=== PATIENT | female | born 1960 | race Caucasian/White ===

== ENCOUNTER → 2017-09-13 | Outpatient (CLI) | payer OTHER ==
[~2017-09-13] MED LIST: AMIT10 PO; AMOCLA875 PO; DIAZ5 PO; DOCU100 PO; ENABLEX PO; ESCI20 PO; HYDACE5 PO; IBUP800 PO; IBUPROFEN; META800 PO; MINO100; Naprosyn500 MG PO; Norco 5-325 Ta1 EACH PO; OXYACE5T PO; PROG100; PROM25 PO; RXOXYACE PO; RXPROM25 PO; SULF10OPSA OD; TRAM50 PO; VENL75ER PO; [UNRECOGNIZED DRUG - OTHER]
[2017-09-13 14:02] LABS: Adenovirus F 40/41 Not Detected (NOT DETECT); Astrovirus Not Detected (NOT DETECT); Campylobacter Sp Not Detected (NOT DETECT); Cryptosporidium Not Detected (NOT DETECT); Cyclospora Cayetanensis Not Detected (NOT DETECT); E. Coli O157 Not Detected (NOT DETECT); Entamoeba Histolytica Not Detected (NOT DETECT); Enteroaggregative E. coli-EAEC Not Detected (NOT DETECT); Enterotoxigenic E. coli-ETEC Not Detected (NOT DETECT); Giardia Lamblia Not Detected (NOT DETECT); Norovirus GI/GII Not Detected (NOT DETECT); Plesiomonas Shigelloides Not Detected (NOT DETECT); Rotavirus A Not Detected (NOT DETECT); Salmonella Sp Not Detected (NOT DETECT); Sapovirus Not Detected (NOT DETECT); Shiga Toxin-prod E. coli-STEC Not Detected (NOT DETECT); Shigella/Enteroin E. coli-EIEC Not Detected (NOT DETECT); Vibrio Cholerae Not Detected (NOT DETECT); Vibrio Sp Not Detected (NOT DETECT); Yersinia Enterocolitica Not Detected (NOT DETECT)
[2017-09-13 18:54] LABS: Enteropathogenic E. coli-EPEC Detected (NOT DETECT)
== END ==
LOC: LAB EV 08:15
PROVIDERS: Physician Assistant Surgical
DX: A08.4 Viral intestinal infection, unspecified (principal)
CPT/HCPCS: 87507

== ENCOUNTER → 2018-06-16 | Outpatient (CLI) | payer OTHER ==
[2018-06-18 16:07] LABS: HPV 16 Negative (Negative); HPV 18 Negative (Negative); HPV OTHER HR TYPES Negative (Negative)
== END | disposition home or self-care (01) ==
LOC: LAB SHORT 17:16 → LAB 17:16
PROVIDERS: Nurse Practitioner Women's Health
DX: Z12.4 Encounter for screening for malignant neoplasm of cervix (principal); Z91.89 Other specified personal risk factors, not elsewhere classified
CPT/HCPCS: 87624; G0123

== ENCOUNTER → 2019-09-02 | Outpatient (CLI) | payer OTHER | END | disposition home or self-care (01) | LOC: LAB SHORT 14:18 → LAB 14:18 | DX: N10 Acute pyelonephritis (principal) | CPT/HCPCS: 87077; 87086; 87186 ==

== ENCOUNTER → 2019-09-06 | Outpatient (CLI) | payer OTHER ==
[2019-09-06 16:13] LABS: Hematocrit 38.8 % (33.0-51.0); Hemoglobin 12.2 g/dL (11.5-16.0); Mean Corpuscular HGB 27.7 pg (26.0-34.0); Mean Corpuscular HGB Conc 31.4 g/dL (31.5-36.5); Mean Corpuscular Volume 88 fL (80-100); Mean Platelet Volume 10.9 fL (9.1-12.4); Platelet Count 407 K/mm3 (150-400); RDW Coefficient Variation 14.9 % (11.7-14.2); RDW Standard Deviation 48.4 fL (35.1-46.3); Red Blood Cell Count 4.41 M/mm3 (3.80-5.20)
[2019-09-06 16:31] LABS: BAND PERCENT MAN 4 % (0-8); BASOPHILS ABSOLUTE MAN 0.27 K/mm3 (0.00-0.23); BASOPHILS PERCENT MAN 3 % (0-2); EOSINOPHILS PERCENT MAN 0 % (0-6); LYMPHOCYTES ABSOLUTE MAN 2.18 K/mm3 (0.84-5.20); LYMPHOCYTES PERCENT MAN 24 % (21-46); METAMYELOCYTE ABSOLUTE MAN 0.27 K/mm3 (0.00-0.00); METAMYELOCYTE PERCENT MAN 3 % (0-0); MONOCYTES ABSOLUTE MAN 0.36 K/mm3 (0.16-1.47); MONOCYTES PERCENT MAN 4 % (4-13); MYELOCYTE ABSOLUTE MAN 0.09 K/mm3 (0.00-0.00); MYELOCYTE PERCENT MAN 1 % (0-0); NEUTROPHILS ABSOLUTE MAN 5.91 K/mm3 (1.96-9.15); SEG NEUTROPHILS PERCENT MAN 61 % (41-73); TOTAL CELLS COUNTED 100
[2019-09-06 16:34] LABS: Alanine Aminotransfer (ALT/SGP 144 U/L (12-78); Albumin, Blood 2.5 g/dL (3.4-5.0); Albumin/Globulin Ratio 0.5 (0.8-1.8); Alk Phos 192 U/L (50-136); Anion Gap 6 mmol/L (6-16); Aspartate Aminotrans (AST/SGOT 31 U/L (12-37); Bilirubin, Total 0.5 mg/dL (0.1-1.0); Blood Urea Nitrogen 19 mg/dL (8-24); Bun/Creatinine Ratio 20.7 (12.0-20.0); CO2, Blood 29 mmol/L (21-32); Calcium, Blood 8.7 mg/dL (8.5-10.1); Chloride, Blood 106 mmol/L (98-108); Creatinine, Blood 0.92 mg/dL (0.40-1.00); Glomerular Filtration Rate >60 (60-); Glucose, Blood 97 mg/dL (70-99); Potassium, Blood 3.8 mmol/L (3.5-5.5); Sodium, Blood 141 mmol/L (136-145); Total Protein, Blood 7.5 g/dL (6.4-8.2)
[2019-09-06 17:31] LABS: Adenovirus F 40/41 Not Detected (NOT DETECT); Astrovirus Not Detected (NOT DETECT); Campylobacter Sp Not Detected (NOT DETECT); Cryptosporidium Not Detected (NOT DETECT); Cyclospora Cayetanensis Not Detected (NOT DETECT); E. Coli O157 Not Detected (NOT DETECT); Entamoeba Histolytica Not Detected (NOT DETECT); Enteroaggregative E. coli-EAEC Not Detected (NOT DETECT); Enteropathogenic E. coli-EPEC Not Detected (NOT DETECT); Enterotoxigenic E. coli-ETEC Not Detected (NOT DETECT); Giardia Lamblia Not Detected (NOT DETECT); Norovirus GI/GII Not Detected (NOT DETECT); Plesiomonas Shigelloides Not Detected (NOT DETECT); Rotavirus A Not Detected (NOT DETECT); Salmonella Sp Not Detected (NOT DETECT); Sapovirus Not Detected (NOT DETECT); Shiga Toxin-prod E. coli-STEC Not Detected (NOT DETECT); Shigella/Enteroin E. coli-EIEC Not Detected (NOT DETECT); Vibrio Cholerae Not Detected (NOT DETECT); Vibrio Sp Not Detected (NOT DETECT); Yersinia Enterocolitica Not Detected (NOT DETECT)
== END | disposition home or self-care (01) ==
LOC: LAB SHORT 15:00 → LAB 15:00
PROVIDERS: Physician Assistant
DX: N12 Tubulo-interstitial nephritis, not specified as acute or chronic (principal); R19.7 Diarrhea, unspecified; N39.0 Urinary tract infection, site not specified; R53.83 Other fatigue
CPT/HCPCS: 0097U; 80053; 84443; 85025; 87086

== ENCOUNTER → 2020-01-13 | Outpatient (CLI) | payer OTHER ==
[~2020-01-13] MED LIST changes: +MELO7.5 PO
== END ==
LOC: LAB 14:28 → LAB SHORT 14:28
DX: R30.0 Dysuria (principal)
CPT/HCPCS: 87077; 87086; 87186

== ENCOUNTER 2020-02-02 09:37 | Day surgery (SDC) | payer OTHER ==
[~2020-02-02] VITALS: Ht 160 cm; Wt 83.8 kg
[~2020-02-02 09:37] MED LIST changes: -MELO7.5 PO
[2020-02-02] MEDS ORDERED: MELO7.5 PO (10:06)
--- NOTE | 2020-02-02 11:27 | NUR ---
02/02/20 1127 Anamaria Vaz History, Chart, Medications and Allergies reviewed before start of procedure. Patient confirms NPO status and agrees with scheduled surgery.PATIENT DETERMINED TO BE ASA APPROPRIATE FOR MODERATE SEDATION PRIOR TO START OF PROCEDURE BY DR. WEBER. 3-LEAD EKG REVIEWED WITH PHYSICIAN PRIOR TO START OF PROCEDURE. MONITOR INTACT WITH CONTINUOUS PULSE OXIMETRY AND INTERMITTENT BP.
--- NOTE | 2020-02-02 12:05 | NUR ---
Patient up to Ambulate independently. Gait steady. Discharge instructions reviewed with patient. Patient verbalizes understanding. Copy given to patient to take home. Patient States Post-Procedure ride home has been arranged. Discharged via wheelchair to private car for ride home. ALL BELONINGS RETURNED TO PATIENT.
== END 2020-02-02 23:00 | disposition home or self-care (01) ==
LOC: ORSCMMR 09:37 → ORD 10:15 → ORSCMMR 10:15
PROVIDERS: Internal Medicine Gastroenterology
PROC: 0DJD8ZZ Inspection of Lower Intestinal Tract, Via Natural or Artificial Opening Endoscopic (ICD-10-PCS; principal; 2020-02-02 10:15)
DX: Z12.11 Encounter for screening for malignant neoplasm of colon (principal); Z80.0 Family history of malignant neoplasm of digestive organs; K64.8 Other hemorrhoids; F32.9 Major depressive disorder, single episode, unspecified; G47.30 Sleep apnea, unspecified; Z86.010 Personal history of colon polyps; Z79.899 Other long term (current) drug therapy
CPT/HCPCS: J2250; J3010; J7120

== ENCOUNTER → 2020-12-20 | Outpatient (CLI) | payer OTHER ==
[~2020-12-20] MED LIST changes: +MELO7.5 PO
[2020-12-20 17:23] LABS: Source, Urine Voided
[2020-12-20 19:35] LABS: Appearance, Urine Hazy (Clear); Bilirubin, Urine Neg (Neg); Blood, Urine Neg (Neg); Color, Urine Yellow (P-Yellow); Glucose Qualitative, Urine Neg (Neg); Ketones, Urine Neg (Neg); Leukocyte Esterase, Urine Neg (Neg); Nitrite, Urine Neg (Neg); Protein, Urine Neg (Neg); Urobilinogen, Urine NORM (Normal)
[2020-12-20 20:08] LABS: Amorphous Heavy (0-Heavy); Bacteria Mod /hpf; Red Blood Cells, Urine Not Seen /hpf (0-2); Squamous Epithelial Cells Many /hpf (Few); White Blood Cells, Urine Not Seen /hpf (0-5)
== END | disposition home or self-care (01) ==
LOC: LAB SHORT 17:20 → LAB 17:20
PROVIDERS: Urology
DX: N20.0 Calculus of kidney (principal)
CPT/HCPCS: 81001; 87077; 87086; 87186

== ENCOUNTER → 2021-04-25 | Outpatient (CLI) | payer OTHER ==
[2021-04-25 23:50] LABS: Anion Gap 4 mmol/L (6-16); Blood Urea Nitrogen 18 mg/dL (8-24); Bun/Creatinine Ratio 18.1 (12.0-20.0); CHOL/HDL RATIO 2.6; CO2, Blood 32 mmol/L (21-32); Calcium, Blood 9.5 mg/dL (8.5-10.1); Chloride, Blood 107 mmol/L (98-108); Cholesterol 184 mg/dL (50-200); Glomerular Filtration Rate 57 (60-); Glucose, Blood 94 mg/dL (70-99); HDL Cholesterol 70 mg/dL (>39); LDL/HDL RATIO 1.4; Low Density Lipoprotein Chol 95 mg/dL (0-110); Potassium, Blood 4.9 mmol/L (3.5-5.5); Sodium, Blood 143 mmol/L (136-145); Triglycerides 94 mg/dL (30-160); Very Low Density Lipoprot Chol 18 mg/dL (6-32)
== END ==
LOC: LAB SHORT 10:21 → LAB FUT 04-10 12:50
PROVIDERS: Physician Assistant
DX: N39.0 Urinary tract infection, site not specified (principal); E78.5 Hyperlipidemia, unspecified
CPT/HCPCS: 36415; 80048; 80061

== ENCOUNTER → 2021-11-16 | Outpatient (CLI) | payer OTHER | END | disposition home or self-care (01) | LOC: LAB SHORT 16:42 → LAB 16:42 | DX: J02.9 Acute pharyngitis, unspecified (principal) | CPT/HCPCS: 87077; 87081; 87185 ==

== ENCOUNTER 2022-11-07 22:13 | Emergency (ER) | payer OTHER ==
[~2022-11-07] VITALS: Ht 157.5 cm; Wt 83.0 kg
[2022-11-07 22:20] VITALS: BP 144/87
== END 2022-11-08 01:01 | disposition home or self-care (01) ==
LOC: ER 22:13
DX: M65.4 Radial styloid tenosynovitis [de Quervain] (principal); Z88.2 Allergy status to sulfonamides; Z88.1 Allergy status to other antibiotic agents; Z88.8 Allergy status to other drugs, medicaments and biological substances; Z79.899 Other long term (current) drug therapy
CPT/HCPCS: 73110; 96372; 99283-25; A9270; J1885

== ENCOUNTER 2023-01-02 06:09 | Day surgery (SDC) | payer OTHER ==
[~2023-01-02] VITALS: Ht 154.9 cm; Wt 82.4 kg
[2023-01-02] VITALS (14 sets, daily range): BP systolic 97–145; BP diastolic 60–97
[~2023-01-02 06:09] MED LIST changes: +CALTRATE 600 P1 EACH PO; +MULVITA PO; +POTASSIUM CITR10 MEQ PO
--- NOTE | 2023-01-02 07:00 | NUR ---
History, Chart, Medications and Allergies reviewed before start of procedure. Lungs clear T/O to Auscultation. Patient confirms NPO status and agrees with scheduled surgery. Pre-Op teaching done. Pt verbalizes understanding. Patient reports completing Chlorhexadine shower X2 prior to admission to hospital.
--- NOTE | 2023-01-02 07:25 | NUR ---
PT NOTED TO HAVE TWO SMALL SCRATCH ON LATERAL LEFT HANSEN WHICH SHE REPORTS WAS FROM HER CAT A FEW DAYS AGO. DOESN'T NOT APPEAR TO BE INFECTED AT THIS TIME. DR. POTTER NOTIFED AND ASSESSED. PTS DAUGHTER GIVEN RX FOR ANTIBIOTICS FOR AFTER SURGERY. PLAN TO PROCED WITH SURGERY
--- NOTE | 2023-01-02 11:01 | NUR ---
ARRIVAL TO SURGICAL UNIT PLEASANT & COOPERATIVE. ASSESSMENT CHARTED. IVF INFUSING. DENIES N/V. SNACKS & WATER GIVEN. WILL ORDER LUNCH TRAY. PAIN 05/25; WILL MEDICATE w/ PO MEDS IF TOLERATES SNACKS. DAUGHTER AT BEDSIDE; ATTENTIVE & LOVING.
--- NOTE | 2023-01-02 18:01 | NUR ---
SHIFT SUMMARY PAIN WELL CONTROLLED. WORKED w/ THERAPY. EATING, DRINKING, & VOIDING; (WEARING PULLS UPS SHE DOES HAVE STRESS INCONTINENCE). BULKY KRISTY WRAP w/ NO DRNG OR SHADOWING.
[2023-01-03 00:01] VITALS: BP 102/60
--- NOTE | 2023-01-03 03:48 | NUR ---
SHIFT SUMMARY POD 1 L TKA. NO ACUTE CHANGES OVERNIGHT. VSS, O2 SAT >92% ON 2L NC. KRISTY WRAP/GAUZE C/D/I, POLAR PACK IN PLACE. PT TOLERATING ORALS. AMBULATE TO RESTROOM c FWW & SBA FOR LINES/CORDS. ANTICIPATED DISCHARGE LATER TODAY. CALL LIGHT WITHIN REACH, BED IN LOWEST POSITION, WILL REPORT TO DAY RN.
[2023-01-03 05:16] VITALS: BP 97/58
[2023-01-03 05:18] LABS: BASOPHILS ABSOLUTE AUTO 0.03 K/mm3 (0.00-0.23); BASOPHILS PERCENT AUTO 0 % (0-2); EOSINOPHILS ABSOLUTE AUTO 0.02 K/mm3 (0.00-0.68); EOSINOPHILS PERCENT AUTO 0 % (0-6); Hematocrit 33.7 % (33.0-51.0); Hemoglobin 10.8 g/dL (11.5-16.0); IMMATURE GRAN ABSOLUTE AUTO 0.05 K/mm3 (0.00-0.10); IMMATURE GRAN PERCENT AUTO 0 % (0-1); LYMPHOCYTES ABSOLUTE AUTO 1.84 K/mm3 (0.84-5.20); LYMPHOCYTES PERCENT AUTO 16 % (21-46); MONOCYTES ABSOLUTE AUTO 0.81 K/mm3 (0.16-1.47); MONOCYTES PERCENT AUTO 7 % (4-13); Mean Corpuscular HGB 28.5 pg (26.0-34.0); Mean Corpuscular Volume 89 fL (80-100); Mean Platelet Volume 11.6 fL (9.1-12.4); NEUTROPHILS ABSOLUTE AUTO 9.11 K/mm3 (1.96-9.15); NEUTROPHILS PERCENT AUTO 77 % (41-73); Platelet Count 236 K/mm3 (150-400); RDW Coefficient Variation 13.7 % (11.7-14.2); RDW Standard Deviation 44.9 fL (35.1-46.3); Red Blood Cell Count 3.79 M/mm3 (3.80-5.20); White Blood Cell Count 11.86 K/mm3 (4.00-11.30)
[2023-01-03 05:43] LABS: Bun/Creatinine Ratio 22.2 (12.0-20.0); Calcium, Blood 7.9 mg/dL (8.5-10.1); Creatinine, Blood 0.77 mg/dL (0.40-1.00); Potassium, Blood 3.9 mmol/L (3.5-5.5)
[2023-01-03 07:18] VITALS: BP 111/66
--- NOTE | 2023-01-03 10:40 | NUR ---
DISCHARGE SUMMARY PT A&OX4, VSS/RA, DESIREE PO, VOIDING, AMB SBA FWW, PAIN MANAGED, IV DC'D. DC INS PROVIDED. PT REP UNDERSTANDING THOSE INSTRUCTIONS. LEFT FLOOR VIA WC WITH SMELTER LINER TO GO HOME WITH DAUGHTER, WITH ALL PERSONAL POSSESSIONS INCLUDING DC PACKET AND AQUACEL DRESSINGS.
== END 2023-01-03 11:07 | disposition home or self-care (01) ==
LOC: ORSCMMR 06:09 → ORD 07:30 → ORSCMMR 07:30 → ORD 10:45 → SURS 11:11 → ORSCMMR 01-03 11:07
PROVIDERS: Orthopaedic Surgery
PROC: 0SRD0J9 Replacement of Left Knee Joint with Synthetic Substitute, Cemented, Open Approach (ICD-10-PCS; principal; 2023-01-02 07:30)
DX: M17.0 Bilateral primary osteoarthritis of knee (principal); Z79.899 Other long term (current) drug therapy; Z68.34 Body mass index [BMI] 34.0-34.9, adult
CPT/HCPCS: 36415; 73560-LT; 80048; 83735; 85025; 97110; 97110-CQ; 97116; 97116-CQ; 97161; 97530-CQ; A9270; C1713; C1776; J0171; J0690; J0735; J1100; J1885; J2250; J2405; J2704; J2795; J3010; J7120

== ENCOUNTER 2023-11-06 10:25 | Day surgery (SDC) | payer OTHER ==
[~2023-11-06] VITALS: Ht 156 cm; Wt 83.0 kg
[2023-11-06] VITALS (11 sets, daily range): BP systolic 112–149; BP diastolic 67–89
[2023-11-06] MEDS ORDERED: Acetaminophen 500 MG Tab PO SCH ×2 (11:00→16:00)
[2023-11-06] MEDS ORDERED: CeFAZolin Sodium 2,000 MG in NS 100 ML IV SCH ×2 (11:00→22:00)
[2023-11-06] MEDS ORDERED: Chlorhexidine Mouth Care 15 ML UDC MT SCH (11:00)
[2023-11-06] MEDS ORDERED: Ropivacaine 0.5% HCl/Pf 123.125 MG,EPINEPHrine HCL 0.25 MG,Ketorolac Tromethamine 15 MG... INFIL SCH (11:00)
[2023-11-06] MEDS ORDERED: Vancomycin HCL 1,000 MG in NS 250 ML IV SCH (11:00)
[2023-11-06] MEDS ORDERED: OxyCODONE HCL 10 MG TABCR PO SCH (11:00)
[2023-11-06] MEDS ORDERED: Lactated Ringer's 1,000 ML IV SCH ×2 (11:00→14:10)
[2023-11-06] MEDS ORDERED: Tranexamic Acid 100 ML IV SCH (11:04)
[2023-11-06] MEDS ORDERED: NS 100 ML IV ONE ×2 (11:15→20:12)
[2023-11-06] MEDS ORDERED: CeFAZolin Sodium 2,000 MG VIAL ONE ×2 (11:15→20:12)
--- NOTE | 2023-11-06 13:52 | NUR ---
History, Chart, Medications and Allergies reviewed before start of procedure. Patient up to Ambulate independently. Gait steady. Pre-Op teaching done. Pt verbalizes understanding. Patient confirms NPO status and agrees with scheduled surgery. Patient reports completing Chlorhexadine shower X2 prior to admission to hospital. Surgical site prepped with 2% Chlorhexidine cloth wipe. Lungs clear T/O to Auscultation.
[2023-11-06] MEDS ORDERED: propofoL 20 ML IV ONE ×4 (13:53→15:36)
[2023-11-06] MEDS ORDERED: FentaNYL Citrate 50 MCG/ML 2 ML Injection ONE (13:53)
[2023-11-06] MEDS ORDERED: Midazolam HCl 1MG / ML 2ML Vial ONE (13:54)
[2023-11-06] MEDS ORDERED: Magnesium Hydroxide Conc 10 ML UDC PO PRN (14:05)
[2023-11-06] MEDS ORDERED: Bisacodyl 10 MG Supp PR PRN (14:10)
[2023-11-06] MEDS ORDERED: Ondansetron HCl 2 MG / ML 2ML Vial IV PRN (14:10)
[2023-11-06] MEDS ORDERED: OxyCODONE HCL 5 MG TAB PO PRN ×2 (14:10)
[2023-11-06] MEDS ORDERED: DiphenhydrAMINE HCL 25 MG Cap PO PRN (14:15)
[2023-11-06] MEDS ORDERED: Promethazine HCl 25 MG Tab PO PRN (14:15)
[2023-11-06] MEDS ORDERED: HYDROmorphone HCl/Pf 1MG SYR IV PRN (14:15)
[2023-11-06] MEDS ORDERED: Metoclopramide HCl 5MG / ML 2ML Vial IV PRN (14:20)
[2023-11-06] MEDS ORDERED: ePHEDrine Sulfate 50 MG/ML 1ML Injection ONE (14:25)
--- NOTE | 2023-11-06 14:53 | NUR ---
11/06/23 1453 Marianna Elizondo SPINAL BLOCK COMPLETED BY UPON ENTRY TO OR. PATIENT TOLERATED WELL. VANCOMYCIN POWDER 1GM POURED ONTO STERILE FIELD. POWDER INSTILLED INTO JOINT CAPSULE.
[2023-11-06] MEDS ORDERED: Glycopyrrolate 0.2 MG/ML 5ML VIAL ONE (15:59)
[2023-11-06] MEDS ORDERED: Ketorolac Tromethamine 15mg Vial IV SCH (18:00)
[2023-11-06] MEDS ORDERED: Potassium Citrate 5 MEQ TABCR PO SCH (21:00)
[2023-11-06] MEDS ORDERED: Docusate Sodium 100 MG Cap PO SCH (21:00)
[2023-11-07] MEDS ORDERED: Vancomycin HCL 1,000 MG in NS 250 ML IV ONE (01:30)
[2023-11-07 02:40] VITALS: BP 115/70
[2023-11-07 04:36] LABS: BASOPHILS ABSOLUTE AUTO 0.04 K/mm3 (0.00-0.23); BASOPHILS PERCENT AUTO 0 % (0-2); EOSINOPHILS ABSOLUTE AUTO 0.07 K/mm3 (0.00-0.68); EOSINOPHILS PERCENT AUTO 1 % (0-6); Hematocrit 33.7 % (33.0-51.0); Hemoglobin 10.9 g/dL (11.5-16.0); IMMATURE GRAN ABSOLUTE AUTO 0.04 K/mm3 (0.00-0.10); IMMATURE GRAN PERCENT AUTO 0 % (0-1); LYMPHOCYTES ABSOLUTE AUTO 1.67 K/mm3 (0.84-5.20); LYMPHOCYTES PERCENT AUTO 17 % (21-46); MONOCYTES ABSOLUTE AUTO 0.69 K/mm3 (0.16-1.47); MONOCYTES PERCENT AUTO 7 % (4-13); Mean Corpuscular HGB 28.8 pg (26.0-34.0); Mean Corpuscular HGB Conc 32.3 g/dL (31.5-36.5); Mean Corpuscular Volume 89 fL (80-100); Mean Platelet Volume 11.1 fL (9.1-12.4); NEUTROPHILS PERCENT AUTO 74 % (41-73); Platelet Count 239 K/mm3 (150-400); RDW Coefficient Variation 13.8 % (11.7-14.2); Red Blood Cell Count 3.78 M/mm3 (3.80-5.20); White Blood Cell Count 9.71 K/mm3 (4.00-11.30)
[2023-11-07 04:53] LABS: Bun/Creatinine Ratio 13.3 (12.0-20.0); Calcium, Blood 8.1 mg/dL (8.5-10.1); Creatinine, Blood 0.75 mg/dL (0.40-1.00); Magnesium, Blood 1.9 mg/dL (1.6-2.4); Potassium, Blood 4.5 mmol/L (3.5-5.5)
--- NOTE | 2023-11-07 05:06 | NUR ---
SHIFT SUMMARY POD 1 R TKA PT ABLE TO REST DURING THE NIGHT. PAIN MANAGED PER EMAR. TOLERATING PO INTAKE. VOIDING. KRISTY AND GAUZE TO R KNEE ARE C/D/I. PT HAD POLAR PRASANTH ON DURING THE NIGHT. PT TRANSFERS WITH 1P SBA, FWW AND GB. PLAN TO HAVE THERAPY THIS AM, THEN D/C HOME. NO OTHER COCERNS AT THIS TIME, CALL LIGHT WITHIN REACH
[2023-11-07] MEDS ORDERED: NS 100 ML IV ONE (05:41)
[2023-11-07] MEDS ORDERED: CeFAZolin Sodium 2,000 MG VIAL ONE (05:41)
[2023-11-07 07:44] VITALS: BP 114/64
[2023-11-07] MEDS ORDERED: Calcium 500 MG/Vit D 200 Units Tab PO SCH (09:00)
[2023-11-07] MEDS ORDERED: Rivaroxaban 10 MG Tab PO SCH (09:00)
[2023-11-07] MEDS ORDERED: Multivitamins 1 Tab PO SCH (09:00)
[2023-11-07] MEDS ORDERED: Linezolid 600 MG Tab PO SCH (09:00)
[2023-11-07] MEDS ORDERED: LINE600 PO (10:03)
[2023-11-07] MEDS ORDERED: OXYC5 PO (10:05)
[2023-11-07] MEDS ORDERED: XARELTO20 MG PO (10:06)
[2023-11-07 10:25] VITALS: BP 111/60
--- NOTE | 2023-11-07 12:17 | NUR ---
PT ASSISTED OUT IN W/C AT 1215. PT MET ALL GOALS PRIOR TO DISCHARGE.
--- NOTE | 2023-11-07 12:18 | NUR ---
DISCHARGE PT PROVIDED WITH WRITTEN AND VERBAL DISCHARGE INSTRUCTIONS, SHE REPORTED UNDERSTANDING. PT MET ALL GOALS PRIOR TO DISCHARGE. VSS. CLEAN DRESSINGS SUPPLIED. PAIN MEDICATION GIVEN PRIOR TO DISCHARGE TO IMPROVE COMFORT WITH TRANSPORT HOME. PT ASSISTED INTO VEHICLE AND LEFT AT APPROXIMATELY 1215.
== END 2023-11-07 12:07 | disposition home or self-care (01) ==
LOC: ORSCMMR 10:25 → ORD 14:00 → ORSCMMR 14:00 → SURS 16:53 → ORSCMMR 11-07 12:07
PROVIDERS: Orthopaedic Surgery
PROC: 0SRC0JA Replacement of Right Knee Joint with Synthetic Substitute, Uncemented, Open Approach (ICD-10-PCS; principal; 2023-11-06 14:00)
DX: M17.11 Unilateral primary osteoarthritis, right knee (principal); Z96.652 Presence of left artificial knee joint; G47.33 Obstructive sleep apnea (adult) (pediatric); F32.A Depression, unspecified; Z79.899 Other long term (current) drug therapy
CPT/HCPCS: 36415; 73560-RT; 80048; 82947; 83735; 85025; 97110; 97162; 97530; A9270; C1713; C1776; J0171; J0690; J0735; J1885; J2250; J2704; J2795; J3010; J3370; J7050; J7120

== ENCOUNTER → 2024-06-17 | Outpatient (CLI) | payer OTHER ==
[~2024-06-17] MED LIST changes: +LINE600 PO; +OXYC5 PO; +XARELTO20 MG PO
== END ==
LOC: LAB SHORT 09:26 → PLD 09:26 → LAB 09:26
DX: R87.612 Low grade squamous intraepithelial lesion on cytologic smear of cervix (LGSIL) (principal)
CPT/HCPCS: 88305

== ENCOUNTER → 2024-09-16 | Outpatient (CLI) | payer OTHER ==
[2024-09-16 10:23] LABS: BASOPHILS ABSOLUTE AUTO 0.05 K/mm3 (0.00-0.23); BASOPHILS PERCENT AUTO 0 % (0-2); EOSINOPHILS ABSOLUTE AUTO 0.03 K/mm3 (0.00-0.68); EOSINOPHILS PERCENT AUTO 0 % (0-6); Hematocrit 37.6 % (33.0-51.0); Hemoglobin 12.2 g/dL (11.5-16.0); IMMATURE GRAN ABSOLUTE AUTO 0.13 K/mm3 (0.00-0.10); IMMATURE GRAN PERCENT AUTO 1 % (0-1); LYMPHOCYTES ABSOLUTE AUTO 0.87 K/mm3 (0.84-5.20); LYMPHOCYTES PERCENT AUTO 7 % (21-46); MONOCYTES ABSOLUTE AUTO 1.01 K/mm3 (0.16-1.47); MONOCYTES PERCENT AUTO 8 % (4-13); Mean Corpuscular HGB Conc 32.4 g/dL (31.5-36.5); Mean Corpuscular Volume 87 fL (80-100); NEUTROPHILS ABSOLUTE AUTO 9.93 K/mm3 (1.96-9.15); NEUTROPHILS PERCENT AUTO 83 % (41-73); NRBC ABSOLUTE 0.00 K/mm3 (0.00-0.02); NRBC Auto 0.0 /100 WBC (0.0-0.2); Platelet Count 222 K/mm3 (150-400); RDW Coefficient Variation 14.9 % (11.7-14.2); RDW Standard Deviation 47.8 fL (35.1-46.3)
[2024-09-16 10:33] LABS: Alanine Aminotransfer (ALT/SGP 74.0 U/L (12-78); Albumin, Blood 2.8 g/dL (3.4-5.0); Albumin/Globulin Ratio 0.7 (0.8-1.8); Anion Gap 14.0 mmol/L (3-11); Aspartate Aminotrans (AST/SGOT 26.0 U/L (12-37); Bilirubin, Total 1.1 mg/dL (0.1-1.0); Blood Urea Nitrogen 24.0 mg/dL (8-24); CO2, Blood 26.0 mmol/L (21-32); Calcium, Blood 9.3 mg/dL (8.5-10.1); Chloride, Blood 104.0 mmol/L (98-108); Creatinine, Blood 1.13 mg/dL (0.40-1.00); Globulin, Blood 4.3 g/dL (2.2-4.0); Glucose, Blood 110.0 mg/dL (70-99); Potassium, Blood 3.8 mmol/L (3.5-5.5); Sodium, Blood 140.0 mmol/L (136-145); Total Protein, Blood 7.1 g/dL (6.4-8.2)
== END ==
LOC: LAB SHORT 10:18
PROVIDERS: Physician Assistant
DX: N39.0 Urinary tract infection, site not specified (principal); R10.9 Unspecified abdominal pain
CPT/HCPCS: 80053; 85025; 87077; 87086; 87186